=== PATIENT | male | born 1980 | race Caucasian/White ===

== ENCOUNTER 2017-03-25 00:17 | Emergency (ER) | payer SELFPAY ==
[~2017-03-25] VITALS: Ht 177.8 cm; Wt 61.2 kg
[2017-03-25] MEDS ORDERED: NKM (00:18)
[2017-03-25] MEDS ORDERED: Haloperidol 5mg/ml Inj IM ONE (00:45)
[2017-03-25] MEDS ORDERED: DiphenhydrAMINE 50mg/ml Inj IM ONE (00:45)
[2017-03-25 01:15] VITALS: BP 132/85
[2017-03-25 01:32] LABS: BASOPHILS % (AUTO) 1.2 % (0.0-2.0); EOSINOPHILS % (AUTO) 1.4 % (0.0-3.0); LYMPHOCYTES % (AUTO) 27.8 % (20.0-45.0); MEAN CORPUSCULAR HEMOGLOBIN 30.7 PG (27.0-31.0); MEAN CORPUSCULAR VOLUME 90 FL (80-99); MEAN PLATELET VOLUME 9.3 FL (6.5-10.1); MONOCYTES % (AUTO) 9.6 % (1.0-10.0); NEUTROPHILS % (AUTO) 60.1 % (45.0-75.0); PLATELET COUNT 223 K/UL (150-450); RED BLOOD COUNT 4.46 M/UL (4.70-6.10); RED CELL DISTRIBUTION WIDTH 10.3 % (11.6-14.8); WHITE BLOOD COUNT 10.5 K/UL (4.8-10.8)
[2017-03-25 01:41] LABS: ACETAMINOPHEN < 10 ug/mL (10-30); ALANINE AMINOTRANSFERASE 12 U/L (3-41); ALBUMIN/GLOBULIN RATIO 1.6 (1.0-2.7); ALCOHOL < 10 mg/dL; ANION GAP 18 (5-15); ASPARTATE AMINO TRANSFERASE 24 U/L (5-40); CALCIUM 9.4 mg/dL (8.6-10.2); CARBON DIOXIDE 24 mEQ/L (20-30); CHLORIDE 98 mEQ/L (98-107); CREATININE 0.9 mg/dL (0.7-1.2); GLOMERULAR FILTRATION RATE > 60 mL/min (>60); HEMOLYSIS 4; POTASSIUM 4.1 mEQ/L (3.4-4.9); SODIUM 140 mEQ/L (135-145); TOTAL PROTEIN 7.1 g/dL (6.6-8.7)
[2017-03-25 03:54] LABS: BILIRUBIN,DIRECT 0.2 mg/dL (0.1-0.3)
--- NOTE | 2017-03-26 03:29 | Emergency Room Report ---
History of Present Illness General Chief Complaint: Behavioral Complaint Source: Patient, EMS Present Illness HPI Patient presents by paramedics Upon arrival the patient's begins yelling at the medical staff requesting water And reports that he is hungry Patient reports that he is homeless and wants something to eat Denied any headache denies any chest pain Patient reports that he had palpitations Denies any vomiting or diarrhea Allergies: Coded Allergies: No Known Allergies (Unverified , 03/25/17) Patient History Limited by: medical condition Past Medical History: see triage record Pertinent Family History: none Reviewed Nursing Documentation: PMH: Agreed, PSxH: Agreed Review of Systems All Other Systems: limited - Other than the ones mentioned in the history of present illness all others are reviewed however they do stay limited due to the patient's refusal to cooperate Physical Exam Vital Signs Date Time Temp Pulse Resp B/P Pulse Ox O2 Delivery O2 Flow Rate FiO2 03/25/17 00:17 97.7 56 18 106/69 96 Room Air Sp02 EP Interpretation: reviewed, normal General Appearance: other - eextremely angry Head: normocephalic, atraumatic Eyes: bilateral eye EOMI, bilateral eye PERRL ENT: normal pharynx Neck: supple Respiratory: lungs clear Cardiovascular #1: regular rate, rhythm Gastrointestinal: non tender, soft Musculoskeletal: normal inspection Neurologic: alert, oriented x3, responsive Psychiatric: other - Patient angry however no signs of suicidal or homicidal thoughts, Skin: no rash - however appear disheveled Lymphatic: no adenopathy Medical Decision Making Diagnostic Impression: Primary Impression: Refusal of care by patient ER Course Upon initial arrival patient feeling and screaming at the staff requesting food denies any other medical complaints However is also un cooperative with questioning After the patient was in his room for a few minutes he became more irate began asking for his phone And walked out of the emergency room Last Vital Signs Date Time Temp Pulse Resp B/P Pulse Ox O2 Delivery O2 Flow Rate FiO2 03/25/17 01:15 18 132/85 98 Room Air 03/25/17 00:17 97.7 56 Status: unchanged Disposition: ELOPED Condition: Unknown Referrals: NOT CHOSEN IPA/,REFERRING (PCP) LUDY CAVAZOS D.O. Mar 26, 2017 03:28
== END 2017-03-25 01:15 | disposition left against medical advice (07) ==
LOC: EDBD 00:17 → EMR 00:58
DX: F91.8 Other conduct disorders (principal); Z53.21 Procedure and treatment not carried out due to patient leaving prior to being seen by health care provider
CPT/HCPCS: 36415; 80053; 82248; 85025; 96372; 99283; G0480; J1630; 80329